=== PATIENT | male | born 1940 | race Caucasian/White ===

== ENCOUNTER → 2017-04-05 | Outpatient (CLI) | payer MEDICARE, OTHER ==
[~2017-04-05] MED LIST: AMLODIPINE BESY10 MG PO; KLOR-CON 1010 MEQ PO; NORCO 10-325 T1 EACH PO; SIMVASTATIN20 MG PO; SYNTHROID100 MCG PO; Z.0.LEVOTHROID50 MCG; Z.0.NORVASC10 MG; Z.0.ZOCOR20 MG
--- NOTE | 2017-04-05 14:31 | Diagnostic Imaging Report ---
EXAMINATION: MRI of the lumbar spine without contrast HISTORY: Low back pain radiating to the lower extremities for last 3 months COMPARISON: None. TECHNIQUE: Sagittal T1, T2, STIR; axial T2 and proton density. FINDINGS: It is assumed that there are 5 lumbar vertebrae. Curvature/Alignment: Normal lordosis. Subtle right-sided curvature. Vertebrae: No evidence of recent fracture, infection, or neoplasm. Chronic endplate degenerative changes at L4-5 approximately 7 mm T1, T2 and STIR hyperintense focus adjacent to the superior endplate of L2, without cortical disruption, periosteal reaction or adjacent soft tissue mass, this is a nonspecific finding and may represent a fat-containing hemangioma. Conus: Normal, terminating at L1 Cauda equina: Unremarkable. Lower thoracic: Unremarkable. Paraspinal soft tissues: Unremarkable. Degenerative changes: L1-L2: Unremarkable. L2-L3: Mild symmetric disc portable chest and moderate facet arthrosis. Minimal anterolisthesis. No significant canal or foraminal stenoses. L3-L4: Asymmetric to the right disc bulge, ligamenta flava thickening and facet arthroses. Severe spinal canal and moderately severe foraminal stenoses. L4-L5: Decreased disc height and T2 signal intensity, minimal symmetric disc bulge and bilateral facet arthrosis. Moderate right and moderate left foraminal stenosis. Decompressive laminectomy without canal stenoses. No recurrent disc or significant scar tissue. L5-S1: Minimal symmetric disc bulge and facet arthrosis. No canal or foraminal stenosis. Sacroiliac joints: Mild degenerative changes bilaterally IMPRESSION: 1. Minimal degenerative anterolisthesis at L2-L3. 2. Severe degenerative spinal canal and moderately severe bilateral foraminal stenosis at L3-L4 . 3. Moderate right and mild left degenerative foraminal stenosis at L4-5. Signed by: Dr. Abbie Sinclair M.D. on 04/05/2017 2:27 PM
== END ==
LOC: MRI 07:36
PROVIDERS: ATTEND Family Medicine
DX: M54.5 Low back pain (principal)
CPT/HCPCS: 72148

== ENCOUNTER → 2017-05-28 | Outpatient (CLI) | payer MEDICARE, OTHER ==
[~2017-05-28] MED LIST changes: +GADOBENATE DIMEGLUMINE 1 ML IV ONE
[2017-05-28 09:19] LABS: BLOOD UREA NITROGEN 25 mg/dL (7-26); BUN/CREATININE RATIO 23 (6-25); EST GLOMERULAR FILTRATION RATE > 60 ML/MIN (60-)
--- NOTE | 2017-05-28 11:44 | Diagnostic Imaging Report ---
MRI pelvis Indication: Right lower quadrant abdominal tenderness Technique: Multiplanar, multi-sequential MRI of the pelvis was performed both before and after the intravenous administration of 17 cc of gadolinium. Comparison: No relevant priors. Correlation is made with an MRI of the lumbar spine 04/05/2017 Findings: Bowel: Peristalsis creates motion artifact. Diverticulosis coli is present in the visualized portions of the descending and sigmoid colon without associated inflammation. Visualized portion of the proximal large bowel is normal. Small bowel is normal in diameter with normal wall thickness. The appendix is normal. Prostate: Measures 3.2 x 4.6 x 4.0 cm. There is mild BPH. No focal lesions in the transition zone or peripheral zone. Seminal vesicales: Normal signal and morphology. Bladder: Normal. Distal ureters are collapsed. Lymph nodes: No lymphadenopathy Peritoneum: No free fluid or fluid collection. Vessels: Normal morphology. Bones: Normal marrow signal. There are mild to moderate degenerative changes of the lower lumbar spine at L4-5. No focal osseous lesions. Soft tissues: No evidence of hernia or abdominal wall mass. Visualized muscles are normal in signal and morphology. There are postoperative changes of the lower lumbar spine at L4-5 and L5-S1 from laminectomy. IMPRESSION: 1. Degenerative and postoperative changes of the lower lumbar spine. 2. No mass or hernia to explain right lower quadrant pain. 3. Diverticulosis coli. 4. Mild prostate hypertrophy. Signed by: Dr. Casimiro Arthur MD on 05/28/2017 11:40 AM
== END ==
LOC: MRI 08:47
PROVIDERS: ATTEND Family Medicine
DX: R10.31 Right lower quadrant pain (principal)
CPT/HCPCS: 36415; 72197; 82565; 84520

== ENCOUNTER 2020-12-14 09:59 | Inpatient (IN) | payer MEDICARE, OTHER ==
[~2020-12-14] VITALS: Ht 177.8 cm; Wt 73.9 kg
[~2020-12-14 09:59] MED LIST changes: -GADOBENATE DIMEGLUMINE 1 ML IV ONE
[2020-12-14] MEDS ORDERED: GABAPENTIN300 MG PO (10:09)
[2020-12-14] MEDS ORDERED: LEVOTHYROXINE88 MCG PO (10:09)
[2020-12-14] MEDS ORDERED: ROSUVASTATIN CA10 MG PO (10:09)
[2020-12-14] MEDS ORDERED: K DUR10 MEQ PO (10:09)
[2020-12-14] MEDS ORDERED: TRIAMTERENE-HC1 EAC2 PO (10:09)
[2020-12-14] MEDS ORDERED: ONDANSETRON HCL INJ 2MG/ML 2ML 2 MG/ML VIAL IV NR (10:17)
[2020-12-14] MEDS ORDERED: SODIUM CHLORIDE 0.9% 1000ML 1,000 ML IV ONE (10:30)
[2020-12-14 10:56] LABS: BASOPHILS # (AUTO) 0.1 (0.0-0.1); BASOPHILS % 0.3 % (0.0-1.0); EOSINOPHILS # (AUTO) 0.1 (0.0-0.4); EOSINOPHILS % 0.8 % (0.0-6.0); HEMATOCRIT 42.5 % (38.2-49.6); HEMOGLOBIN 15.9 g/dL (14.0-18.0); LYMPHOCYTES # (AUTO) 3.1 (1.0-3.2); LYMPHOCYTES % 19.6 % (18.0-39.1); MEAN CORPUSCULAR HEMOGLOBIN 30.7 pg (28-32); MEAN CORPUSCULAR HGB CONC 37.4 g/dL (31-35); MONOCYTES # (AUTO) 1.4 (0.2-0.8); MONOCYTES % 8.6 % (4.4-11.3); NEUTROPHILS # (AUTO) 10.8 (2.1-6.9); NEUTROPHILS % 69.2 % (38.7-80.0); PLATELET COUNT 342 x10e3/uL (140-360); RED BLOOD COUNT 5.18 x10e6/uL (4.3-5.7); RED CELL DISTRIBUTION WIDTH 11.9 % (11.7-14.4)
[2020-12-14 11:06] LABS: INR 0.91; PROTHROMBIN TIME 12.4 seconds (11.9-14.5)
[2020-12-14 11:07] LABS: PARTIAL THROMBOPLASTIN TIME 30.3 seconds (23.8-35.5)
[2020-12-14 11:17] LABS: ALBUMIN 4.4 g/dL (3.5-5.0); ALBUMIN/GLOBULIN RATIO 1.2 (0.8-2.0); ANION GAP 16.7 mmol/L (8-16); CALCIUM 9.7 mg/dL (8.4-10.2); CREATININE, SERUM 1.52 mg/dL (0.72-1.25)
[2020-12-14 11:25] LABS: POTASSIUM 2.7 mmol/L (3.5-5.1)
[2020-12-14 11:27] LABS: CREATINE KINASE MB 4.1 ng/mL (0-5.0)
[2020-12-14 11:49] LABS: CLARITY,URINE CLEAR (CLEAR); COLOR,URINE YELLOW (YELLOW)
[2020-12-14 11:50] LABS: KETONES,URINE NEGATIVE (NEGATIVE); LEUKOCYTE ESTERASE ,URINE NEGATIVE (NEGATIVE); NITRITE,URINE NEGATIVE (NEGATIVE); PROTEIN,URINE DIPSTICK NEGATIVE (NEGATIVE); URINE UROBILINOGEN 0.2 mg/dL (0.2 - 1)
[2020-12-14] MEDS ORDERED: POTASSIUM CHLORIDE 20 MEQ TAB CR PO STA (11:54)
[2020-12-14 11:59] LABS: MUCUS,URINE FEW (RARE); RBC,URINE 0-5 /HPF (0-5)
[2020-12-14] MEDS ORDERED: KCL 20MEQ/.9 SOD CHL 1,000 ML IV ONE (12:00)
[2020-12-14] MEDS ORDERED: SODIUM CHLORIDE 0.9% 1000ML 1,000 ML IV SCH (12:45)
[2020-12-14] MEDS: POTASSIUM CHLORIDE 10MEQ/100ML 100 ML IV SCH ×2 (12:45→19:11)
[2020-12-14] MEDS ORDERED: ONDANSETRON HCL INJ 2MG/ML 2ML 2 MG/ML VIAL IV PRN (13:00)
[2020-12-14 14:27] VITALS: BP 96/74
[2020-12-14 14:29] VITALS: BP 96/74
[2020-12-14] MEDS ORDERED: POTASSIUM CHLORIDE 20MEQ/100ML 200 ML IV ONE (15:00)
[2020-12-14] MEDS ORDERED: POTASSIUM CHLORIDE 20MEQ/100ML 100 ML IV ONE (15:00)
[2020-12-14] MEDS: KCL 20MEQ/.9 SOD CHL 1,000 ML IV SCH (15:30)
[2020-12-14] MEDS ORDERED: SODIUM CHLORIDE 0.9% 250ML 250 ML ONE ×2 (15:46→22:54)
[2020-12-14 16:52] VITALS: BP 136/94
[2020-12-14] MEDS ORDERED: TRIAMTERENE-HCTZ1 EA PO (16:54)
[2020-12-14] MEDS ORDERED: ONDANSETRON ODT4 MG PO (16:56)
[2020-12-14] MEDS ORDERED: PREDNISONE10 MG PO (16:56)
[2020-12-14] MEDS ORDERED: HYDROCODON-ACE1 EAC9 PO (16:58)
[2020-12-14 17:20] LABS: ANION GAP 12.9 mmol/L (8-16); CALCIUM 8.6 mg/dL (8.4-10.2); CREATININE, SERUM 1.29 mg/dL (0.72-1.25)
[2020-12-14 17:22] LABS: CREATINE KINASE MB 3.8 ng/mL (0-5.0); POTASSIUM 2.9 mmol/L (3.5-5.1)
[2020-12-14] MEDS ORDERED: LIDOCAINE 4% PATCH TP PRN (19:15)
[2020-12-14 20:00] VITALS: BP 145/60
[2020-12-14 21:59] VITALS: BP 145/60
[2020-12-14] MEDS: HYDROCODONE/APAP 10MG-325MG TAB PO PRN (22:40)
[2020-12-15] VITALS (8 sets, daily range): BP systolic 89–151; BP diastolic 55–96
[2020-12-15] MEDS: KCL 20MEQ/.9 SOD CHL 1,000 ML IV SCH ×3 (01:00→22:00)
[2020-12-15 05:45] LABS: BASOPHILS # (AUTO) 0.1 (0.0-0.1); BASOPHILS % 0.3 % (0.0-1.0); EOSINOPHILS # (AUTO) 0.1 (0.0-0.4); EOSINOPHILS % 0.3 % (0.0-6.0); HEMATOCRIT 39.2 % (38.2-49.6); HEMOGLOBIN 14.6 g/dL (14.0-18.0); LYMPHOCYTES # (AUTO) 2.5 (1.0-3.2); LYMPHOCYTES % 12.5 % (18.0-39.1); MEAN CORPUSCULAR HEMOGLOBIN 30.6 pg (28-32); MEAN CORPUSCULAR HGB CONC 37.2 g/dL (31-35); MEAN CORPUSCULAR VOLUME 82.2 fL (81-99); MONOCYTES # (AUTO) 1.8 (0.2-0.8); MONOCYTES % 9.3 % (4.4-11.3); NEUTROPHILS # (AUTO) 14.9 (2.1-6.9); NEUTROPHILS % 76.2 % (38.7-80.0); PLATELET COUNT 346 x10e3/uL (140-360); RED BLOOD COUNT 4.77 x10e6/uL (4.3-5.7); RED CELL DISTRIBUTION WIDTH 12.1 % (11.7-14.4)
[2020-12-15 06:18] LABS: ALBUMIN 3.6 g/dL (3.5-5.0); ALBUMIN/GLOBULIN RATIO 1.2 (0.8-2.0); ANION GAP 16.6 mmol/L (8-16); CALCIUM 8.9 mg/dL (8.4-10.2)
[2020-12-15] MEDS: LEVOTHYROXINE SODIUM 88 MCG TAB PO SCH (06:20)
[2020-12-15 06:44] LABS: POTASSIUM 2.6 mmol/L (3.5-5.1)
[2020-12-15 07:05] LABS: CREATININE, SERUM 1.31 mg/dL (0.72-1.25)
[2020-12-15] MEDS ORDERED: POTASSIUM CHLORIDE 20 MEQ TAB CR PO ONE (07:30)
[2020-12-15] MEDS ORDERED: POTASSIUM CHLORIDE 20MEQ/100ML 200 ML IV ONE (07:30)
[2020-12-15] MEDS: HYDROCODONE/APAP 10MG-325MG TAB PO PRN ×2 (12:51→17:33)
[2020-12-15 12:52] LABS: ANION GAP 15.8 mmol/L (8-16); CALCIUM 8.8 mg/dL (8.4-10.2); CREATININE, SERUM 1.25 mg/dL (0.72-1.25); POTASSIUM 3.8 mmol/L (3.5-5.1)
[2020-12-15] MEDS ORDERED: ZOLPIDEM TARTRATE 10 MG TAB PO PRN (19:00)
[2020-12-15] MEDS ORDERED: SODIUM CHLORIDE 1 GM TAB PO ONE (19:30)
[2020-12-15] MEDS: METHYLPREDNISOLONE SOD SUCC 40 MG/ML VIAL 1ML IV SCH (21:41)
[2020-12-16] VITALS (7 sets, daily range): BP systolic 115–165; BP diastolic 56–95
[2020-12-16 05:53] LABS: HEMATOCRIT 40.1 % (38.2-49.6); HEMOGLOBIN 14.3 g/dL (14.0-18.0); MEAN CORPUSCULAR HEMOGLOBIN 30.8 pg (28-32); MEAN CORPUSCULAR HGB CONC 35.7 g/dL (31-35); MEAN CORPUSCULAR VOLUME 86.4 fL (81-99); PLATELET COUNT 317 x10e3/uL (140-360); RED BLOOD COUNT 4.64 x10e6/uL (4.3-5.7); RED CELL DISTRIBUTION WIDTH 12.6 % (11.7-14.4)
[2020-12-16] MEDS: LEVOTHYROXINE SODIUM 88 MCG TAB PO SCH (06:00)
[2020-12-16] MEDS: HYDROCODONE/APAP 10MG-325MG TAB PO PRN ×2 (06:26→20:15)
[2020-12-16 06:27] LABS: ALBUMIN 3.5 g/dL (3.5-5.0); ALBUMIN/GLOBULIN RATIO 1.1 (0.8-2.0); ANION GAP 16.9 mmol/L (8-16); CALCIUM 8.9 mg/dL (8.4-10.2); CREATININE, SERUM 1.19 mg/dL (0.72-1.25); POTASSIUM 3.9 mmol/L (3.5-5.1)
[2020-12-16 07:27] LABS: LYMPHOCYTES % (MANUAL) 3 % (19-48); NEUTROPHILS % (MANUAL) 97 % (40-74); PLATELET ESTIMATE ADEQUATE; PLATELET MORPHOLOGY COMMENT NORMAL; RBC MORPHOLOGY COMMENT NORMAL
[2020-12-16] MEDS: METHYLPREDNISOLONE SOD SUCC 40 MG/ML VIAL 1ML IV SCH ×2 (08:04→20:15)
[2020-12-16] MEDS ORDERED: SODIUM CHLORIDE 1 GM TAB PO SCH (09:00)
[2020-12-16] MEDS: KCL 20MEQ/.9 SOD CHL 1,000 ML IV SCH (09:23)
[2020-12-16] MEDS: SODIUM BICARBONATE 650 MG TAB PO SCH (15:59)
[2020-12-16] MEDS: SODIUM CHLORIDE 1 GM TAB PO SCH ×2 (15:59→20:15)
[2020-12-16] MEDS ORDERED: CLONIDINE HCL 0.1 MG TAB PO PRN (23:45)
[2020-12-17] VITALS (7 sets, daily range): BP systolic 126–164; BP diastolic 68–100
[2020-12-17 06:07] LABS: BASOPHILS % 0.2 % (0.0-1.0); EOSINOPHILS % 0.1 % (0.0-6.0); HEMATOCRIT 33.9 % (38.2-49.6); LYMPHOCYTES # (AUTO) 1.1 (1.0-3.2); LYMPHOCYTES % 6.7 % (18.0-39.1); MEAN CORPUSCULAR HEMOGLOBIN 30.9 pg (28-32); MEAN CORPUSCULAR HGB CONC 35.4 g/dL (31-35); MEAN CORPUSCULAR VOLUME 87.4 fL (81-99); MONOCYTES # (AUTO) 0.8 (0.2-0.8); MONOCYTES % 4.8 % (4.4-11.3); NEUTROPHILS # (AUTO) 13.6 (2.1-6.9); NEUTROPHILS % 86.5 % (38.7-80.0); PLATELET COUNT 287 x10e3/uL (140-360); RED BLOOD COUNT 3.88 x10e6/uL (4.3-5.7); RED CELL DISTRIBUTION WIDTH 12.7 % (11.7-14.4)
[2020-12-17] MEDS: LEVOTHYROXINE SODIUM 88 MCG TAB PO SCH (06:20)
[2020-12-17 06:39] LABS: ANION GAP 12.6 mmol/L (8-16); CALCIUM 8.6 mg/dL (8.4-10.2); POTASSIUM 3.6 mmol/L (3.5-5.1)
[2020-12-17] MEDS: SODIUM BICARBONATE 650 MG TAB PO SCH ×2 (08:17→17:22)
[2020-12-17] MEDS: SODIUM CHLORIDE 1 GM TAB PO SCH ×2 (08:17→14:19)
[2020-12-17] MEDS ORDERED: METHYLPREDNISOLONE 4 MG TAB PO SCH (09:00)
[2020-12-17] MEDS ORDERED: SODIUM CHLORIDE 1 GM TAB PO SCH (09:00)
[2020-12-17] MEDS: HYDROCODONE/APAP 10MG-325MG TAB PO PRN (10:00)
[2020-12-17] MEDS ORDERED: GABAPENTIN 100 MG CAP PO SCH (17:00)
[2020-12-17] MEDS ORDERED: ONDANSETRON HCL 4 MG ORAL DISINTEGRATING TAB PO PRN (18:15)
[2020-12-18] MEDS ORDERED: PANTOPRAZOLE SOD 40 MG TABEC PO SCH (07:30)
[2020-12-18] MEDS ORDERED: FUROSEMIDE 20 MG TAB PO SCH (09:00)
== END 2020-12-17 18:06 | disposition home or self-care (01) | DRG 641 ==
LOC: ER 10:05 → ERHOLD 12:47 → IMCU 14:25 → MED/SURG2 12-17 09:41
PROVIDERS: ADMIT Family Medicine; ATTEND Family Medicine
DX: E87.1 Hypo-osmolality and hyponatremia (principal); N17.9 Acute kidney failure, unspecified; E87.6 Hypokalemia; E86.0 Dehydration; I10 Essential (primary) hypertension; M54.50 Low back pain, unspecified; E78.5 Hyperlipidemia, unspecified; G62.9 Polyneuropathy, unspecified; E87.5 Hyperkalemia; B02.9 Zoster without complications; Z20.822 Contact with and (suspected) exposure to COVID-19
CPT/HCPCS: 36415; 70450; 71045; 76770; 80048; 80053; 81001; 82550; 82553; 83735; 83880; 84132; 84295; 84443; 84484; 84550; 85007; 85025; 85027; 85610; 85730; 87086; 93005; 96361; 97139; 99251; 99284; J2405; J2920; J3480; J7030; J7050; U0002

== ENCOUNTER 2021-05-03 12:35 | Emergency (ER) | payer MEDICARE, OTHER ==
[~2021-05-03] VITALS: Ht 177.8 cm; Wt 73.9 kg
[~2021-05-03 12:35] MED LIST changes: +GABAPENTIN300 MG PO; +HYDROCODON-ACE1 EAC9 PO; +K DUR10 MEQ PO; +LEVOTHYROXINE88 MCG PO; +ONDANSETRON ODT4 MG PO; +PREDNISONE10 MG PO; +ROSUVASTATIN CA10 MG PO; +TRIAMTERENE-HC1 EAC2 PO; +TRIAMTERENE-HCTZ1 EA PO
[2021-05-03 13:21] LABS: BASOPHILS # (AUTO) 0.1 (0.0-0.1); BASOPHILS % 0.7 % (0.0-1.0); EOSINOPHILS # (AUTO) 0.1 (0.0-0.4); EOSINOPHILS % 1.4 % (0.0-6.0); HEMATOCRIT 40.3 % (38.2-49.6); HEMOGLOBIN 13.5 g/dL (14.0-18.0); LYMPHOCYTES # (AUTO) 1.7 (1.0-3.2); LYMPHOCYTES % 18.6 % (18.0-39.1); MEAN CORPUSCULAR HEMOGLOBIN 30.6 pg (28-32); MEAN CORPUSCULAR HGB CONC 33.5 g/dL (31-35); MEAN CORPUSCULAR VOLUME 91.4 fL (81-99); MONOCYTES % 11.2 % (4.4-11.3); NEUTROPHILS # (AUTO) 6.2 (2.1-6.9); NEUTROPHILS % 67.8 % (38.7-80.0); PLATELET COUNT 241 x10e3/uL (140-360); RED BLOOD COUNT 4.41 x10e6/uL (4.3-5.7)
[2021-05-03 13:22] LABS: CLARITY,URINE CLEAR (CLEAR); COLOR,URINE YELLOW (YELLOW); KETONES,URINE NEGATIVE (NEGATIVE); LEUKOCYTE ESTERASE ,URINE NEGATIVE (NEGATIVE); NITRITE,URINE NEGATIVE (NEGATIVE); PROTEIN,URINE DIPSTICK NEGATIVE (NEGATIVE); URINE UROBILINOGEN 0.2 mg/dL (0.2 - 1)
[2021-05-03 13:32] LABS: ALBUMIN/GLOBULIN RATIO 1.3 (0.8-2.0); ANION GAP 13.6 mmol/L (8-16); CREATININE, SERUM 1.61 mg/dL (0.72-1.25); POTASSIUM 3.6 mmol/L (3.5-5.1)
[2021-05-03 13:38] LABS: RBC,URINE 0-5 /HPF (0-5); WBC,URINE (MAN) 0-5 /HPF (0-5)
[2021-05-03] MEDS ORDERED: ONDANSETRON HCL INJ 2MG/ML 2ML 2 MG/ML VIAL IV NR (13:45)
[2021-05-03] MEDS ORDERED: Morphine 4mg Syringe 4 MG/ML INJ IV NR (13:45)
[2021-05-03] MEDS ORDERED: SODIUM CHLORIDE 0.9% 500ML 500 ML IV ONE (13:45)
[2021-05-03] MEDS ORDERED: SODIUM CHLORIDE 0.9% 50ML 50 ML ONE (13:51)
[2021-05-03] MEDS ORDERED: IOPAMIDOL 370 MG/ML 200 ML INFUS..BTL INJ ONE (13:51)
== END 2021-05-03 15:38 | disposition home or self-care (01) ==
LOC: ER 13:06
DX: R10.31 Right lower quadrant pain (principal); N28.9 Disorder of kidney and ureter, unspecified; E86.0 Dehydration; M54.50 Low back pain, unspecified; I10 Essential (primary) hypertension; E78.5 Hyperlipidemia, unspecified; E03.9 Hypothyroidism, unspecified
CPT/HCPCS: 36415; 71045; 74177; 80053; 81001; 85025; 99284; J2270; J2405; J7040; Q9967

== ENCOUNTER → 2022-01-05 | Day surgery (SDC) | payer MEDICARE, OTHER ==
[2022-01-02 13:07] LABS: BASOPHILS # (AUTO) 0.1 (0.0-0.1); BASOPHILS % 0.6 % (0.0-1.0); EOSINOPHILS # (AUTO) 0.1 (0.0-0.4); EOSINOPHILS % 1.2 % (0.0-6.0); HEMATOCRIT 39.6 % (38.2-49.6); HEMOGLOBIN 12.9 g/dL (14.0-18.0); LYMPHOCYTES # (AUTO) 1.4 (1.0-3.2); LYMPHOCYTES % 18.5 % (18.0-39.1); MEAN CORPUSCULAR HEMOGLOBIN 30.5 pg (28-32); MEAN CORPUSCULAR HGB CONC 32.6 g/dL (31-35); MEAN CORPUSCULAR VOLUME 93.6 fL (81-99); MONOCYTES # (AUTO) 0.8 (0.2-0.8); MONOCYTES % 10.4 % (4.4-11.3); NEUTROPHILS # (AUTO) 5.3 (2.1-6.9); NEUTROPHILS % 69.2 % (38.7-80.0); PLATELET COUNT 203 x10e3/uL (140-360); RED BLOOD COUNT 4.23 x10e6/uL (4.3-5.7); RED CELL DISTRIBUTION WIDTH 12.2 % (11.7-14.4)
[~2022-01-05] MED LIST changes: +LIDOCAINE HCL 2% LOCAL INJ 5 ML SDV VIAL INJ ONE; +NEURONTIN300 MG PO; +POVIDONE IODINE 0.05% 0.05 % ML PO ONE; +PROPOFOL IV EMULSION 10 MG/ML 20 ML VIAL IV ONE; +VITAMIN D3 MA125 MCG PO
[2022-01-05 08:10] VITALS: BP 136/69
== END | disposition home or self-care (01) ==
LOC: OR 06:13
PROVIDERS: ATTEND Physical Medicine & Rehabilitation Pain Medicine
DX: B02.29 Other postherpetic nervous system involvement (principal); E03.9 Hypothyroidism, unspecified; I10 Essential (primary) hypertension; E78.5 Hyperlipidemia, unspecified; Z88.0 Allergy status to penicillin; Z88.8 Allergy status to other drugs, medicaments and biological substances; Z01.810 Encounter for preprocedural cardiovascular examination; Z01.812 Encounter for preprocedural laboratory examination; Z79.899 Other long term (current) drug therapy
CPT/HCPCS: 36415; 64510; 77003; 85025; 93005; J2001; J2704

== ENCOUNTER → 2022-01-26 | Day surgery (SDC) | payer MEDICARE, OTHER ==
[~2022-01-26] MED LIST changes: +BUPIVACAINE 0.25% 30ML SDV ONE; +FENTANYL CITRATE/PF 100MCG/2 ML INJ ONE; +IOPAMIDOL 200 MG/ML 20 ML VIAL IT ONE; +LIDOCAINE HCL 1% 30ML-PF VIAL ONE; -LIDOCAINE HCL 2% LOCAL INJ 5 ML SDV VIAL INJ ONE; +MIDAZOLAM HCL 2 MG/2 ML VIAL ONE; -POVIDONE IODINE 0.05% 0.05 % ML PO ONE; -PROPOFOL IV EMULSION 10 MG/ML 20 ML VIAL IV ONE
[2022-01-26 07:30] VITALS: BP 113/70
== END | disposition home or self-care (01) ==
LOC: OR 06:59
PROVIDERS: ATTEND Physical Medicine & Rehabilitation Pain Medicine
DX: B02.29 Other postherpetic nervous system involvement (principal); E03.9 Hypothyroidism, unspecified; I10 Essential (primary) hypertension; E78.00 Pure hypercholesterolemia, unspecified; Z88.6 Allergy status to analgesic agent; Z88.0 Allergy status to penicillin; Z88.8 Allergy status to other drugs, medicaments and biological substances; Z79.899 Other long term (current) drug therapy
CPT/HCPCS: 64510; 77003; J2001; J2250; J3010; Q9967

== ENCOUNTER → 2022-02-23 | Day surgery (SDC) | payer MEDICARE, OTHER ==
[2022-02-21 13:43] LABS: BASOPHILS % 0.5 % (0.0-1.0); EOSINOPHILS # (AUTO) 0.3 (0.0-0.4); EOSINOPHILS % 3.6 % (0.0-6.0); HEMATOCRIT 41.7 % (38.2-49.6); HEMOGLOBIN 13.7 g/dL (14.0-18.0); LYMPHOCYTES # (AUTO) 1.5 (1.0-3.2); LYMPHOCYTES % 20.7 % (18.0-39.1); MEAN CORPUSCULAR HEMOGLOBIN 31.1 pg (28-32); MEAN CORPUSCULAR HGB CONC 32.9 g/dL (31-35); MEAN CORPUSCULAR VOLUME 94.6 fL (81-99); MONOCYTES # (AUTO) 0.8 (0.2-0.8); MONOCYTES % 10.4 % (4.4-11.3); NEUTROPHILS # (AUTO) 4.7 (2.1-6.9); NEUTROPHILS % 64.5 % (38.7-80.0); PLATELET COUNT 229 x10e3/uL (140-360); RED BLOOD COUNT 4.41 x10e6/uL (4.3-5.7); RED CELL DISTRIBUTION WIDTH 11.8 % (11.7-14.4)
[~2022-02-23] MED LIST changes: +DEXAMETHASONE SOD PHOS 10 MG/1 ML VIAL ONE; -FENTANYL CITRATE/PF 100MCG/2 ML INJ ONE; +LIDOCAINE HCL 2% LOCAL INJ 5 ML SDV VIAL INJ ONE; -MIDAZOLAM HCL 2 MG/2 ML VIAL ONE; +POVIDONE IODINE 0.05% 0.05 % ML PO ONE; +PROPOFOL IV EMULSION 10 MG/ML 20 ML VIAL ONE
[2022-02-23 08:00] VITALS: BP 114/65
== END | disposition home or self-care (01) ==
LOC: OR 07:21
PROVIDERS: ATTEND Physical Medicine & Rehabilitation Pain Medicine
DX: B02.29 Other postherpetic nervous system involvement (principal); E03.9 Hypothyroidism, unspecified; I10 Essential (primary) hypertension; E78.5 Hyperlipidemia, unspecified; E78.00 Pure hypercholesterolemia, unspecified; G62.9 Polyneuropathy, unspecified; Z88.6 Allergy status to analgesic agent; Z88.0 Allergy status to penicillin; Z88.8 Allergy status to other drugs, medicaments and biological substances; Z91.048 Other nonmedicinal substance allergy status; Z01.812 Encounter for preprocedural laboratory examination; Z79.899 Other long term (current) drug therapy; Z86.19 Personal history of other infectious and parasitic diseases
CPT/HCPCS: 36415; 64510; 77003; 85025; J1100; J2001 ×2; J2704; Q9967

== ENCOUNTER → 2022-03-23 | Day surgery (SDC) | payer MEDICARE, OTHER ==
[~2022-03-23] MED LIST changes: -BUPIVACAINE 0.25% 30ML SDV ONE; -POVIDONE IODINE 0.05% 0.05 % ML PO ONE; -PROPOFOL IV EMULSION 10 MG/ML 20 ML VIAL ONE
[2022-03-23 07:10] VITALS: BP 115/65
== END | disposition home or self-care (01) ==
LOC: OR 05:47
PROVIDERS: ATTEND Physical Medicine & Rehabilitation Pain Medicine
DX: M54.12 Radiculopathy, cervical region (principal); B02.29 Other postherpetic nervous system involvement; E03.9 Hypothyroidism, unspecified; I10 Essential (primary) hypertension; E78.00 Pure hypercholesterolemia, unspecified; Z88.6 Allergy status to analgesic agent; Z88.1 Allergy status to other antibiotic agents; Z88.0 Allergy status to penicillin; Z88.8 Allergy status to other drugs, medicaments and biological substances; Z91.048 Other nonmedicinal substance allergy status; Z79.899 Other long term (current) drug therapy
CPT/HCPCS: 77003; J1100; J2001; Q9967

== ENCOUNTER 2022-04-10 14:52 | Inpatient (IN) | payer MEDICARE, OTHER ==
[~2022-04-10] VITALS: Ht 177.8 cm; Wt 48.3 kg
[~2022-04-10 14:52] MED LIST changes: -DEXAMETHASONE SOD PHOS 10 MG/1 ML VIAL ONE; -IOPAMIDOL 200 MG/ML 20 ML VIAL IT ONE; -LIDOCAINE HCL 1% 30ML-PF VIAL ONE; -LIDOCAINE HCL 2% LOCAL INJ 5 ML SDV VIAL INJ ONE
[2022-04-10] MEDS ORDERED: SODIUM CHLORIDE FLUSH 10 ML SYR IV PRN (18:15)
[2022-04-10] MEDS ORDERED: ONDANSETRON HCL INJ 2MG/ML 2ML 2 MG/ML VIAL IV ONE (18:15)
[2022-04-10] MEDS ORDERED: SODIUM CHLORIDE 0.9% 1000ML 1,000 ML IV SCH (18:15)
[2022-04-10 18:49] LABS: BASOPHILS # (AUTO) 0.1 (0.0-0.1); BASOPHILS % 0.6 % (0.0-1.0); EOSINOPHILS # (AUTO) 0.8 (0.0-0.4); EOSINOPHILS % 7.1 % (0.0-6.0); HEMATOCRIT 41.1 % (38.2-49.6); HEMOGLOBIN 13.9 g/dL (14.0-18.0); LYMPHOCYTES # (AUTO) 2.2 (1.0-3.2); LYMPHOCYTES % 20.8 % (18.0-39.1); MEAN CORPUSCULAR HEMOGLOBIN 30.5 pg (28-32); MEAN CORPUSCULAR HGB CONC 33.8 g/dL (31-35); MEAN CORPUSCULAR VOLUME 90.3 fL (81-99); MONOCYTES # (AUTO) 1.2 (0.2-0.8); MONOCYTES % 11.1 % (4.4-11.3); NEUTROPHILS # (AUTO) 6.4 (2.1-6.9); NEUTROPHILS % 59.6 % (38.7-80.0); PLATELET COUNT 387 x10e3/uL (140-360); RED BLOOD COUNT 4.55 x10e6/uL (4.3-5.7); RED CELL DISTRIBUTION WIDTH 11.3 % (11.7-14.4)
[2022-04-10 19:02] LABS: INR 0.89; PROTHROMBIN TIME 12.3 seconds (11.9-14.5)
[2022-04-10 19:03] LABS: PARTIAL THROMBOPLASTIN TIME 28.4 seconds (23.8-35.5)
[2022-04-10 19:11] LABS: ALBUMIN 3.1 g/dL (3.5-5.0); ALBUMIN/GLOBULIN RATIO 0.8 (0.8-2.0); ANION GAP 16.8 mmol/L (8-16); CALCIUM 9.9 mg/dL (8.4-10.2); CREATININE, SERUM 1.27 mg/dL (0.72-1.25)
[2022-04-10] MEDS ORDERED: POTASSIUM CHLORIDE 20 MEQ TAB CR PO ONE (19:30)
[2022-04-10 19:31] LABS: POTASSIUM 2.8 mmol/L (3.5-5.1)
[2022-04-10] MEDS ORDERED: SODIUM CHLORIDE 0.9% 1000ML 1,000 ML IV ONE (19:45)
[2022-04-10 20:31] LABS: CLARITY,URINE CLEAR (CLEAR); COLOR,URINE YELLOW (YELLOW)
[2022-04-10 20:32] LABS: AMPHETAMINES SCREEN,URINE NEGATIVE (NEGATIVE); BENZODIAZEPINES SCREEN,URINE NEGATIVE (NEGATIVE); KETONES,URINE NEGATIVE (NEGATIVE); LEUKOCYTE ESTERASE ,URINE NEGATIVE (NEGATIVE); NITRITE,URINE NEGATIVE (NEGATIVE); PHENCYCLIDINE SCREEN,URINE NEGATIVE (NEGATIVE); PROTEIN,URINE DIPSTICK NEGATIVE (NEGATIVE); URINE UROBILINOGEN 0.2 mg/dL (0.2 - 1)
[2022-04-10 20:44] LABS: BACTERIA,URINE FEW /HPF; EPITHELIAL CELLS,URINE RARE /LPF; RBC,URINE 0-5 /HPF (0-5); WBC,URINE (MAN) 0-5 /HPF (0-5)
[2022-04-10] MEDS ORDERED: IOPAMIDOL 370 MG/ML 100 ML INFUS..BTL INJ ONE (21:48)
[2022-04-11] VITALS (9 sets, daily range): BP systolic 101–123; BP diastolic 56–85
[2022-04-11] MEDS ORDERED: ONDANSETRON HCL INJ 2MG/ML 2ML 2 MG/ML VIAL IV PRN
[2022-04-11] MEDS: SODIUM CHLORIDE 0.9% 1000ML 1,000 ML IV SCH ×4 (00:30→16:56)
[2022-04-11 05:57] LABS: BASOPHILS # (AUTO) 0.1 (0.0-0.1); BASOPHILS % 0.8 % (0.0-1.0); EOSINOPHILS % 9.7 % (0.0-6.0); HEMATOCRIT 32.4 % (38.2-49.6); HEMOGLOBIN 11.5 g/dL (14.0-18.0); LYMPHOCYTES % 19.2 % (18.0-39.1); MEAN CORPUSCULAR HEMOGLOBIN 30.8 pg (28-32); MEAN CORPUSCULAR HGB CONC 35.5 g/dL (31-35); MEAN CORPUSCULAR VOLUME 86.9 fL (81-99); MONOCYTES # (AUTO) 1.3 (0.2-0.8); MONOCYTES % 12.2 % (4.4-11.3); NEUTROPHILS % 57.4 % (38.7-80.0); PLATELET COUNT 285 x10e3/uL (140-360); RED BLOOD COUNT 3.73 x10e6/uL (4.3-5.7); RED CELL DISTRIBUTION WIDTH 11.9 % (11.7-14.4)
[2022-04-11 06:29] LABS: ALBUMIN 2.5 g/dL (3.5-5.0); ALBUMIN/GLOBULIN RATIO 0.8 (0.8-2.0); ANION GAP 13.3 mmol/L (8-16); CALCIUM 8.9 mg/dL (8.4-10.2); CREATININE, SERUM 1.12 mg/dL (0.72-1.25); POTASSIUM 3.3 mmol/L (3.5-5.1)
[2022-04-11] MEDS ORDERED: HYDROCODONE/APAP 10MG-325MG TAB PO PRN (19:30)
[2022-04-12] MEDS: SODIUM CHLORIDE 0.9% 1000ML 1,000 ML IV SCH ×3 (01:17→13:38)
[2022-04-12 08:13] LABS: BASOPHILS # (AUTO) 0.1 (0.0-0.1); BASOPHILS % 0.9 % (0.0-1.0); EOSINOPHILS # (AUTO) 1.2 (0.0-0.4); EOSINOPHILS % 15.3 % (0.0-6.0); HEMOGLOBIN 10.5 g/dL (14.0-18.0); LYMPHOCYTES # (AUTO) 1.3 (1.0-3.2); LYMPHOCYTES % 16.7 % (18.0-39.1); MEAN CORPUSCULAR HEMOGLOBIN 30.4 pg (28-32); MEAN CORPUSCULAR HGB CONC 32.8 g/dL (31-35); MEAN CORPUSCULAR VOLUME 92.8 fL (81-99); MONOCYTES # (AUTO) 0.8 (0.2-0.8); MONOCYTES % 9.7 % (4.4-11.3); NEUTROPHILS # (AUTO) 4.5 (2.1-6.9); NEUTROPHILS % 56.9 % (38.7-80.0); PLATELET COUNT 248 x10e3/uL (140-360); RED BLOOD COUNT 3.45 x10e6/uL (4.3-5.7); RED CELL DISTRIBUTION WIDTH 11.8 % (11.7-14.4)
[2022-04-12] MEDS: LEVOTHYROXINE SODIUM 88 MCG TAB PO SCH (08:34)
[2022-04-12] MEDS: POTASSIUM CHLORIDE 10MEQ EA PO SCH (08:35)
[2022-04-12 08:37] VITALS: BP 107/51
[2022-04-12 08:39] LABS: ALBUMIN 2.4 g/dL (3.5-5.0); ALBUMIN/GLOBULIN RATIO 0.9 (0.8-2.0); ANION GAP 9.5 mmol/L (8-16); CALCIUM 8.2 mg/dL (8.4-10.2); CREATININE, SERUM 0.99 mg/dL (0.72-1.25)
[2022-04-12 08:44] VITALS: BP 107/51
[2022-04-12 08:53] LABS: POTASSIUM 2.5 mmol/L (3.5-5.1)
[2022-04-12] MEDS: POTASSIUM CHLORIDE 20MEQ/100ML 100 ML IV SCH ×2 (09:44→12:00)
[2022-04-12] MEDS ORDERED: POTASSIUM CHLORIDE 10MEQ EA PO ONE (10:00)
[2022-04-12 15:00] VITALS: BP 130/62
[2022-04-12 20:05] VITALS: BP 130/62
[2022-04-12 20:40] VITALS: BP 124/60
[2022-04-13] MEDS: SODIUM CHLORIDE 0.9% 1000ML 1,000 ML IV SCH ×2 (04:00→12:44)
[2022-04-13 04:02] VITALS: BP 132/72
[2022-04-13 05:21] LABS: ALBUMIN 2.2 g/dL (3.5-5.0); ALBUMIN/GLOBULIN RATIO 0.8 (0.8-2.0); ANION GAP 10.1 mmol/L (8-16); CALCIUM 8.3 mg/dL (8.4-10.2); CREATININE, SERUM 0.97 mg/dL (0.72-1.25); MAGNESIUM 1.2 MG/DL (1.3-2.1); POTASSIUM 3.1 mmol/L (3.5-5.1)
[2022-04-13 07:35] VITALS: BP 133/74
[2022-04-13 07:36] VITALS: BP 133/74
[2022-04-13] MEDS: POTASSIUM CHLORIDE 10MEQ EA PO SCH (08:31)
[2022-04-13] MEDS: LEVOTHYROXINE SODIUM 88 MCG TAB PO SCH (08:32)
[2022-04-13] MEDS: POTASSIUM CHLORIDE 20MEQ/100ML 100 ML IV SCH ×2 (08:36→11:00)
[2022-04-13 11:44] VITALS: BP 137/88
[2022-04-13] MEDS ORDERED: ONDANSETRON HCL 4 MG ORAL DISINTEGRATING TAB PO PRN (13:15)
== END 2022-04-13 16:38 | disposition home or self-care (01) | DRG 640 ==
LOC: ER 15:47 → ERHOLD 23:52 → MED/SURG 04-11 02:18
PROVIDERS: ADMIT Family Medicine; ATTEND Family Medicine
DX: E86.0 Dehydration (principal); K72.00 Acute and subacute hepatic failure without coma; N17.9 Acute kidney failure, unspecified; R53.1 Weakness; R53.81 Other malaise; E87.1 Hypo-osmolality and hyponatremia; R53.83 Other fatigue; E87.6 Hypokalemia; G62.9 Polyneuropathy, unspecified; E87.8 Other disorders of electrolyte and fluid balance, not elsewhere classified; I12.9 Hypertensive chronic kidney disease with stage 1 through stage 4 chronic kidney disease, or unspecified chronic kidney disease; N18.9 Chronic kidney disease, unspecified; B94.8 Sequelae of other specified infectious and parasitic diseases; E78.5 Hyperlipidemia, unspecified; E03.9 Hypothyroidism, unspecified; Z98.890 Other specified postprocedural states; Z88.8 Allergy status to other drugs, medicaments and biological substances; Z88.1 Allergy status to other antibiotic agents; Z88.5 Allergy status to narcotic agent; Z91.010 Allergy to peanuts; Z79.891 Long term (current) use of opiate analgesic; Z79.899 Other long term (current) drug therapy
CPT/HCPCS: 36415; 70450; 71045; 74177; 76705; 80053; 80307; 81001; 83735; 84484; 85025; 85610; 85730; 93005; 94760; 99284; J2405; J3480; J7030; Q9967

== ENCOUNTER → 2022-04-27 | Day surgery (SDC) | payer MEDICARE, OTHER ==
[~2022-04-27] MED LIST changes: +BUPIVACAINE 0.25% 30ML SDV ONE; +DEXAMETHASONE SOD PHOS 10 MG/1 ML VIAL ONE; +IOPAMIDOL 200 MG/ML 20 ML VIAL IT ONE; +LIDOCAINE HCL 1% 30ML-PF VIAL ONE; +LIDOCAINE HCL 2% LOCAL INJ 5 ML SDV VIAL INJ ONE; +POVIDONE IODINE 0.05% 0.05 % ML PO ONE; +PROPOFOL IV EMULSION 10 MG/ML 20 ML VIAL ONE
[2022-04-27 07:50] VITALS: BP 98/56
== END | disposition home or self-care (01) ==
LOC: OR 06:01
PROVIDERS: ATTEND Physical Medicine & Rehabilitation Pain Medicine
DX: M54.12 Radiculopathy, cervical region (principal); B02.29 Other postherpetic nervous system involvement; G89.29 Other chronic pain; G62.9 Polyneuropathy, unspecified; E03.9 Hypothyroidism, unspecified; I10 Essential (primary) hypertension; E78.00 Pure hypercholesterolemia, unspecified; Z88.1 Allergy status to other antibiotic agents; Z88.0 Allergy status to penicillin; Z88.8 Allergy status to other drugs, medicaments and biological substances; Z91.048 Other nonmedicinal substance allergy status; Z88.6 Allergy status to analgesic agent; Z79.899 Other long term (current) drug therapy
CPT/HCPCS: 64479; 64480; J1100; J2001 ×2; J2704; Q9967; 77003